=== PATIENT | female | born 2000 | race Caucasian/White ===

== ENCOUNTER → 2021-06-03 03:47 | Outpatient (CLI) | payer OTHER, SELFPAY ==
[2021-06-04 17:39] LABS: SARS-CoV-2 RNA PCR Negative
== END ==
PROVIDERS: PCP Pediatrics; Visit Provider Pediatrics
DX: Z20.822 Contact with and (suspected) exposure to COVID-19 (principal)
CPT/HCPCS: C9803; U0003; U0005

== ENCOUNTER 2021-08-09 16:37 | Emergency (ER) | payer OTHER, SELFPAY ==
[2021-08-09 16:49] VITALS: BP 139/80; PULSE 84; RESP 16; TEMP 36.6; O2SAT 100
--- NOTE | 2021-08-09 16:52 | ED.URI ---
HPI - URI/Sore Throat General Chief Complaint: Upper Respiratory Infection Stated Complaint: Sore Throat Time Seen by Provider: 08/09/21 16:52 Source: patient, RN notes reviewed and old records reviewed Mode of arrival: ambulatory Limitations: no limitations History of Present Illness HPI Narrative: 20 year old female who presents to [facility] care with complaints of sore throat since mid morning and some runny nose symptoms. Patient reports that she needs strep test done to see if she has strep, reports that she usually gets it a couple times of year. Patient denies any fevers, chills, or sweats, denies any body aches, has had COVID vaccinations. Patient has not taken any OTC mediations for her symptoms. States that her sore throat started just feeling scratchy then it started feeling sore especially when she swallows, rates her pain 5/10. MD elicited complaint: sore throat, rhinorrhea and nasal congestion Related Data Home Medications Medication Instructions Recorded Confirmed drospirenone-ethinyl estradiol tablet 08/09/21 omeprazole 08/09/21 Allergies Allergy/AdvReac Type Severity Reaction Status Date / Time No Known Allergies Allergy Unverified 01/20/19 17:17 Review of Systems Review of Systems: CONSTITUTIONAL: Denies fever, chills, or sweats. EYES: Denies visual changes, redness, or discharge. ENT: positive for rhinorrhea, congestion, sore throat, no otalgia. CARDIOVASCULAR: Denies chest pain, palpitations, or edema. RESPIRATORY: Denies cough or dyspnea. GASTROINTESTINAL: Denies abdominal pain, nausea, vomiting, or diarrhea. GENITOURINARY: Denies dysuria or hematuria. SKIN: Denies rash or itching. MUSCULOSKELETAL: Denies back pain, joint pain, or myalgia. NEUROLOGIC: Denies headache, numbness, or weakness. PSYCHIATRIC: Denies anxiety or depression. All systems reviewed & are unremarkable except as noted in HPI and below PMFSH Past Medical History Medical History (Updated 08/09/21 @ 17:37 by Christa Hurst NP) Strep pharyngitis UTI (urinary tract infection) Surgical History Surgical History (Updated 08/09/21 @ 17:06 by Christa Hurst NP) No history of previous surgery Family History Family History (Updated 08/09/21 @ 17:35 by Christa Hurst NP) Grandparent Diabetes mellitus Mother Hypertension Social History Social History (Updated 08/09/21 @ 17:35 by Christa Hurst NP) Smoking status: Never smoker Alcohol intake: current Alcohol use details: social Substance use: never Living arrangements: with family Gender identity (if verbalized by the patient): Female Comments At time of signature, agree with nursing past medical, surgical, social and family history. There is no relevant family history pertinent to the presenting complaint Exam Narrative: GENERAL: Well-appearing, well-nourished, and in no acute distress. HEAD: Normocephalic, atraumatic. EYES: PERRLA and EOMI. ENT: Nares red with clear rhinorrhea no epistaxis. Mucous membranes moist.TM's normal with good light reflex, throat has some redness with no lesions or exudates, no red swollen tonsils noted, post nasal drainage present. NECK: Supple.no lynphadenopathy CHEST: Clear to auscultation. No respiratory distress. SAO2 100 % on room air HEART: Regular rate and rhythm. No murmur heard. Normal peripheral pulses. ABDOMEN: Soft, nontender, nondistended, normal active bowel sounds. EXTREMITIES: Normal range of motion. No edema. SKIN: Warm, dry, no rash. NEURO: No focal deficits. Alert and oriented x3. Course Vital Signs Vital signs: Vital Signs Temperature 36.6 C 08/09/21 16:49 Pulse Rate 84 08/09/21 16:49 Respiratory Rate 16 08/09/21 16:49 Blood Pressure 139/80 08/09/21 16:49 Pulse Oximetry 100 08/09/21 16:49 Temperature 36.6 C 08/09/21 16:49 Pulse Rate 84 08/09/21 16:49 Respiratory Rate 16 08/09/21 16:49 Blood Pressure 139/80 08/09/21 16:49 Pulse Oximetry 100 10
== END 2021-08-09 17:14 | disposition home or self-care (01) ==
PROVIDERS: Emergency Provider Registered Nurse; PCP Nurse Practitioner Family
DX: J06.9 Acute upper respiratory infection, unspecified (principal); J02.9 Acute pharyngitis, unspecified
CPT/HCPCS: 87081; 87880; 99213; G0463

== ENCOUNTER 2022-05-09 07:59 | Outpatient (CLI) | payer OTHER, SELFPAY ==
--- NOTE | ~2022-05-09 | US_ITS ---
US abdomen complete EXAMINATION: US Abdomen Complete INDICATION: Epigastric pain PROCEDURE: Realtime High Resolution abdomen ultrasound. COMPARISON: No prior studies for comparison FINDINGS: Gallbladder within normal limits. No gallstones, pericholecystic fluid, gallbladder wall t hickening or biliary dilatation. Common bile duct measures 3 mm. Liver echotexture within normal limits without focal mass. Pancreas within normal limits. Pancreati c tail is obscured by bowel gas. Spleen is unremarkeable. Renal echotexture is within normal limits bilaterally without hydronephrosis, contour deforming mass or renal stone. Right kidney measures 13.1 cm. Left kidney measures 11.4 cm. Visualized aspects of the aorta and IVC are within normal limits. Portal vein is patent. No sonograph ic Miranda's sign indicated by the technologist. IMPRESSION: 1: Normal abdominal ultrasound. Reviewed, dictated and finalized at location A.
== END 2022-05-09 08:00 | disposition home or self-care (01) ==
LOC: ANHIMG 08:01
PROVIDERS: PCP Nurse Practitioner Family; Visit Provider Internal Medicine Gastroenterology
DX: R10.13 Epigastric pain (principal)
CPT/HCPCS: 76700